=== PATIENT | male | born 1935 | race Two or more races ===

== ENCOUNTER 2020-05-24 14:28 | Inpatient (IN) | payer OTHER ==
[~2020-05-24] VITALS: Ht 218.4 cm; Wt 140.7 kg
[2020-05-24] MEDS ORDERED: SODIUM CHLORIDE 0.9% 1,000 ML IV ONE ×2 (16:15→20:45)
[2020-05-24 17:03] LABS: BASOPHILS % 0.8 % (0.0-2.0); EOSINOPHILS % 5.3 % (0.0-5.0); LYMPHOCYTES % 21.7 % (20.0-50.0); MEAN CORPUSCULAR HEMOGLOBIN 26.5 pg (28.0-32.0); MEAN PLATELET VOLUME 11.2 fl (7.4-10.4); MONOCYTES % 7.7 % (2.0-8.0); NEUTROPHILS % 64.5 % (40.0-76.0); PLATELET 78 x1000/uL (130-400); RED BLOOD CELL COUNT 3.76 mill/uL (4.7-6.1)
[2020-05-24 17:08] LABS: CHLORIDE 109 mEq/L (98-107)
[2020-05-24 17:17] LABS: BETA HYDROXYBUTYRATE 1.1 mMol/L (0.0-0.3)
[2020-05-24 17:55] LABS: BG BASE EXCESS -6.9 mmol/L (-2.0-2.0); BG CARBOXYHEMOGLOBIN 0.3 % (0.5-1.5); BG DEOXYHEMOGLOBIN 5.2 % (0.0-5.0); BG FRACTION INSPIRED OXYGEN 21; BG HCO3 ACT 19.2 mmol/L (22.0-26.0); BG METHEMOGLOBIN 0.2 % (0.0-1.5); BG OXYGEN SATURATION 94.8 % (92.0-98.5); BG OXYHEMOGLOBIN 94.3 % (94.0-97.0); BG PCO2 40.9 mmHg (35.0-45.0); BG PO2 75.3 mmHg (75.0-100.0); BG SAMPLE SITE LEFT BRACHIAL; BG TOTAL HEMOGLOBIN 11.2 g/dL (12.0-18.0); BG VENT MODE ROOM AIR
[2020-05-24] MEDS ORDERED: INSULIN REGULAR (HUMULIN R) UD 100 UNITS/ML SYR SUBCUT ONE (20:45)
[2020-05-24] MEDS ORDERED: MORPHINE SULFATE 2 MG/ML CPJ (NOT FOR IM USE) IV ONE (21:00)
[2020-05-24] MEDS ORDERED: INSULIN REGULAR (HUMULIN R) 300UNITS/3ML VIAL SUBCUT NR (22:45)
[2020-05-24 22:55] LABS: CLARITY URINE CLEAR (CLEAR); COLOR URINE YELLOW (YELLOW); KETONES URINE NEGATIVE (NEGATIVE); LEUKOCYTE ESTERASE URINE NEGATIVE (NEGATIVE); NITRITE URINE NEGATIVE (NEGATIVE); OCCULT BLOOD URINE 1+ (NEGATIVE); PROTEIN URINE 1+ (NEGATIVE); SPECIFIC GRAVITY URINE 1.026 (1.005-1.030); UROBILINOGEN URINE 0.2 E.U./dL (0.2-1.0)
[2020-05-25] MEDS ORDERED: INSULIN REGULAR (HUMULIN R) UD 100 UNITS/ML SYR SUBCUT ONE (00:30)
[2020-05-25] MEDS ORDERED: INSULIN REGULAR (HUMULIN R) 300UNITS/3ML VIAL SUBCUT SCH (01:00)
[2020-05-25] MEDS ORDERED: GUAIFENESIN 200MG/10ML SUGAR FREE UDC PO PRN (03:45)
[2020-05-25] MEDS ORDERED: DEXTROSE 50% WATER 50ML SYRINGE IV PRN (03:45)
[2020-05-25] MEDS ORDERED: ACETAMINOPHEN 325MG TABLET PO PRN (03:45)
[2020-05-25] MEDS ORDERED: HYDROCODONE/APAP 7.5/325MG 1 TAB TABLET PO PRN (04:00)
[2020-05-25] MEDS: SODIUM CHLORIDE 0.9% 1,000 ML IV SCH ×2 (04:13→13:28)
[2020-05-25] MEDS: INSULIN LISPRO 100 UNITS/ML SUBCUT SCH ×4 (08:53→21:04)
[2020-05-25] MEDS: BLOOD SUGAR DIAGNOSTIC STRIP TEST SCH ×4 (08:53→21:04)
[2020-05-25] MEDS: FAMOTIDINE 20MG/2ML VIAL IV SCH (08:53)
[2020-05-25] MEDS: CLONIDINE 0.1MG TABLET PO PRN (08:54)
[2020-05-25 09:50] VITALS: BP 179/77
[2020-05-25] MEDS ORDERED: INSULIN GLARGINE UD 100 UNITS/ML SYR SUBCUT SCH ×2 (10:00→15:30)
[2020-05-25] MEDS ORDERED: NITR0.4T49 SL (12:29)
[2020-05-25] MEDS ORDERED: METO-539 PO (12:29)
[2020-05-25] MEDS ORDERED: LOSA25TA26 PO (12:29)
[2020-05-25] MEDS ORDERED: WARF-53 PO (12:29)
[2020-05-25] MEDS ORDERED: FURO20TA4 PO (12:29)
[2020-05-25] MEDS ORDERED: POTA10TA2 PO (12:29)
[2020-05-25] MEDS ORDERED: ISOS1TAB MT (12:29)
[2020-05-25] MEDS: AMLODIPINE 5MG TABLET PO SCH ×2 (13:27→20:58)
[2020-05-25 15:57] LABS: CREATINE KINASE 954 IU/L (39-308)
[2020-05-25 17:52] LABS: BASOPHILS % 0.5 % (0.0-2.0); EOSINOPHILS % 6.6 % (0.0-5.0); HEMATOCRIT. 31.9 % (42.0-52.0); HEMOGLOBIN. 10.1 g/dL (14.0-18.0); LYMPHOCYTES % 17.5 % (20.0-50.0); MEAN CORPUSCULAR HEMOGLOBIN 26.7 pg (28.0-32.0); MEAN CORPUSCULAR VOLUME 84.2 fL (80.0-94.0); MEAN PLATELET VOLUME 10.6 fl (7.4-10.4); MONOCYTES % 8.4 % (2.0-8.0); PLATELET 72 x1000/uL (130-400); RED BLOOD CELL COUNT 3.79 mill/uL (4.7-6.1)
[2020-05-25] MEDS ORDERED: *PATIENT'S OWN MEDICATION STORAGE XX SCH (18:00)
[2020-05-25 18:02] LABS: INR 1.2; PROTHROMBIN TIME 12.4 sec (9.6-11.0)
[2020-05-25] MEDS ORDERED: NITROGLYCERIN 0.4MG TABLET SL SL PRN (20:30)
[2020-05-25 20:35] VITALS: BP 147/75
[2020-05-25] MEDS: METOPROLOL TARTRATE 50MG TABLET PO SCH (20:58)
[2020-05-25] MEDS ORDERED: WARFARIN SODIUM 5MG TABLET PO NR (22:15)
[2020-05-26 00:17] VITALS: BP 186/86
[2020-05-26 04:00] VITALS: BP 164/80
[2020-05-26] MEDS: SODIUM CHLORIDE 0.9% 1,000 ML IV SCH ×2 (05:34→05:40)
[2020-05-26 07:08] LABS: BASOPHILS % 0.5 % (0.0-2.0); EOSINOPHILS % 6.9 % (0.0-5.0); HEMATOCRIT. 33.2 % (42.0-52.0); HEMOGLOBIN. 10.5 g/dL (14.0-18.0); LYMPHOCYTES % 19.7 % (20.0-50.0); MEAN CORPUSCULAR HEMOGLOBIN 26.5 pg (28.0-32.0); MEAN CORPUSCULAR VOLUME 83.5 fL (80.0-94.0); MEAN PLATELET VOLUME 11.4 fl (7.4-10.4); MONOCYTES % 7.1 % (2.0-8.0); NEUTROPHILS % 65.8 % (40.0-76.0); PLATELET 72 x1000/uL (130-400); RED BLOOD CELL COUNT 3.98 mill/uL (4.7-6.1); RED CELL DISTRIBUTION WIDTH 15.3 % (11.6-14.6)
[2020-05-26 07:09] LABS: INR 1.2; PROTHROMBIN TIME 12.3 sec (9.6-11.0)
[2020-05-26 07:35] LABS: CHLORIDE 118 mEq/L (98-107)
[2020-05-26] MEDS: BLOOD SUGAR DIAGNOSTIC STRIP TEST SCH ×4 (07:41→21:00)
[2020-05-26 08:00] VITALS: BP_SYST 121; BP_SYST 125; BP_DIAS 63; BP_DIAS 64
[2020-05-26] MEDS: FAMOTIDINE 20MG/2ML VIAL IV SCH (08:14)
[2020-05-26] MEDS: ISOSORBIDE DINITRATE 30MG TABLET PO SCH ×3 (08:14→16:48)
[2020-05-26] MEDS: AMLODIPINE 5MG TABLET PO SCH ×2 (08:15→23:10)
[2020-05-26] MEDS: METOPROLOL TARTRATE 50MG TABLET PO SCH ×2 (08:15→23:11)
[2020-05-26] MEDS: INSULIN LISPRO 100 UNITS/ML SUBCUT SCH ×4 (08:17→23:13)
[2020-05-26] MEDS ORDERED: FUROSEMIDE 20MG TABLET PO SCH (09:00)
[2020-05-26] MEDS ORDERED: LOSARTAN POTASSIUM 25 MG TABLET PO SCH (09:00)
[2020-05-26] MEDS ORDERED: POTASSIUM CHLORIDE 10MEQ TABLET SR PO SCH (09:00)
[2020-05-26] MEDS: INSULIN GLARGINE UD 100 UNITS/ML SYR SUBCUT SCH (10:27)
[2020-05-26 12:00] VITALS: BP 132/82
[2020-05-26] MEDS: SODIUM CHLORIDE 0.45% 1,000 ML IV SCH ×2 (12:30→12:53)
[2020-05-26 16:00] VITALS: BP 125/63
[2020-05-26] MEDS ORDERED: WARFARIN SODIUM 5MG TABLET PO NR (18:00)
[2020-05-26 20:00] VITALS: BP 128/74
[2020-05-26] MEDS ORDERED: ENOXAPARIN 120MG/0.8ML SYR SUBCUT SCH (20:00)
[2020-05-27] VITALS: BP 165/81
[2020-05-27 04:00] VITALS: BP 123/72
[2020-05-27] MEDS: SODIUM CHLORIDE 0.45% 1,000 ML IV SCH (05:10)
[2020-05-27 07:11] LABS: HEMATOCRIT. 29.5 % (42.0-52.0); HEMOGLOBIN. 9.5 g/dL (14.0-18.0); MEAN CORPUSCULAR HEMOGLOBIN 26.7 pg (28.0-32.0); MEAN PLATELET VOLUME 11.2 fl (7.4-10.4); PLATELET 68 x1000/uL (130-400); RED BLOOD CELL COUNT 3.56 mill/uL (4.7-6.1); RED CELL DISTRIBUTION WIDTH 15.2 % (11.6-14.6)
[2020-05-27 07:14] LABS: INR 1.3; PROTHROMBIN TIME 13.2 sec (9.6-11.0)
[2020-05-27] MEDS: INSULIN LISPRO 100 UNITS/ML SUBCUT SCH ×4 (07:47→22:00)
[2020-05-27] MEDS: BLOOD SUGAR DIAGNOSTIC STRIP TEST SCH ×4 (07:47→21:41)
[2020-05-27 08:00] VITALS: BP 114/73
[2020-05-27 08:08] LABS: ANTI-NUCLEAR ANTIBODIES DIRECT Negative (Negative)
[2020-05-27] MEDS: FAMOTIDINE 20MG/2ML VIAL IV SCH (08:44)
[2020-05-27] MEDS: AMLODIPINE 5MG TABLET PO SCH ×2 (08:44→21:46)
[2020-05-27] MEDS: ISOSORBIDE DINITRATE 30MG TABLET PO SCH ×3 (08:44→16:38)
[2020-05-27] MEDS: METOPROLOL TARTRATE 50MG TABLET PO SCH ×2 (08:44→21:46)
[2020-05-27] MEDS: INSULIN GLARGINE UD 100 UNITS/ML SYR SUBCUT SCH (11:07)
[2020-05-27 12:00] VITALS: BP 144/67
[2020-05-27 15:10] LABS: PLATELET ESTIMATE DECREASED
[2020-05-27 16:00] VITALS: BP 133/72
[2020-05-27] MEDS ORDERED: WARFARIN SODIUM 5MG TABLET PO NR ×2 (18:00→20:00)
[2020-05-27 20:00] VITALS: BP 165/77
[2020-05-27] MEDS ORDERED: ENOXAPARIN 60MG/0.6ML SYR SUBCUT SCH (20:00)
[2020-05-28] VITALS: BP 119/90
[2020-05-28 04:00] VITALS: BP 151/65
[2020-05-28] MEDS: BLOOD SUGAR DIAGNOSTIC STRIP TEST SCH ×4 (07:24→21:44)
[2020-05-28 08:00] VITALS: BP 121/89
[2020-05-28] MEDS: INSULIN LISPRO 100 UNITS/ML SUBCUT SCH ×4 (09:51→21:57)
[2020-05-28] MEDS: ISOSORBIDE DINITRATE 30MG TABLET PO SCH ×3 (09:52→17:39)
[2020-05-28] MEDS: METOPROLOL TARTRATE 50MG TABLET PO SCH ×2 (09:54→21:50)
[2020-05-28] MEDS: ONDANSETRON HCL 4MG/2ML INJ IV PRN ×2 (09:58→10:03)
[2020-05-28] MEDS: FAMOTIDINE 20MG/2ML VIAL IV SCH (10:08)
[2020-05-28 10:22] LABS: BASOPHILS % 0.8 % (0.0-2.0); EOSINOPHILS % 6.4 % (0.0-5.0); LYMPHOCYTES % 23.7 % (20.0-50.0); MEAN CORPUSCULAR HEMOGLOBIN 26.7 pg (28.0-32.0); MEAN CORPUSCULAR VOLUME 82.7 fL (80.0-94.0); MEAN PLATELET VOLUME 12.1 fl (7.4-10.4); MONOCYTES % 8.4 % (2.0-8.0); NEUTROPHILS % 60.7 % (40.0-76.0); PLATELET 79 x1000/uL (130-400); RED BLOOD CELL COUNT 3.74 mill/uL (4.7-6.1); RED CELL DISTRIBUTION WIDTH 14.9 % (11.6-14.6)
[2020-05-28] MEDS: INSULIN GLARGINE UD 100 UNITS/ML SYR SUBCUT SCH (10:23)
[2020-05-28 10:38] LABS: INR 1.1
[2020-05-28 12:00] VITALS: BP 158/85
[2020-05-28] MEDS: AMLODIPINE 5MG TABLET PO SCH ×2 (12:03→21:50)
[2020-05-28 16:00] VITALS: BP 146/78
[2020-05-28 20:00] VITALS: BP 175/89
[2020-05-29] VITALS: BP 142/61
[2020-05-29 04:00] VITALS: BP 127/85
[2020-05-29] MEDS: SODIUM CHLORIDE 0.45% 1,000 ML IV SCH (04:31)
[2020-05-29] MEDS: INSULIN LISPRO 100 UNITS/ML SUBCUT SCH ×4 (07:50→20:53)
[2020-05-29 08:00] VITALS: BP 197/101
[2020-05-29] MEDS: BLOOD SUGAR DIAGNOSTIC STRIP TEST SCH ×4 (08:05→20:52)
[2020-05-29] MEDS: ISOSORBIDE DINITRATE 30MG TABLET PO SCH ×3 (08:41→18:18)
[2020-05-29] MEDS: METOPROLOL TARTRATE 50MG TABLET PO SCH ×2 (08:41→20:52)
[2020-05-29] MEDS: FAMOTIDINE 20MG/2ML VIAL IV SCH (08:41)
[2020-05-29] MEDS: CLONIDINE 0.1MG TABLET PO PRN (08:42)
[2020-05-29] MEDS: AMLODIPINE 5MG TABLET PO SCH ×2 (08:42→20:52)
[2020-05-29] MEDS: INSULIN GLARGINE UD 100 UNITS/ML SYR SUBCUT SCH (10:00)
[2020-05-29 10:28] LABS: BASOPHILS % 0.6 % (0.0-2.0); EOSINOPHILS % 7.5 % (0.0-5.0); HEMATOCRIT. 32.9 % (42.0-52.0); HEMOGLOBIN. 10.4 g/dL (14.0-18.0); LYMPHOCYTES % 28.5 % (20.0-50.0); MEAN CORPUSCULAR HEMOGLOBIN 26.4 pg (28.0-32.0); MEAN CORPUSCULAR VOLUME 83.3 fL (80.0-94.0); MEAN PLATELET VOLUME 11.4 fl (7.4-10.4); MONOCYTES % 9.8 % (2.0-8.0); NEUTROPHILS % 53.6 % (40.0-76.0); PLATELET 80 x1000/uL (130-400); RED BLOOD CELL COUNT 3.95 mill/uL (4.7-6.1); RED CELL DISTRIBUTION WIDTH 15.3 % (11.6-14.6)
[2020-05-29 12:00] VITALS: BP 129/66
[2020-05-29 16:00] VITALS: BP 132/71
[2020-05-29 20:00] VITALS: BP 112/56
[2020-05-30] VITALS: BP 143/85
[2020-05-30 04:30] VITALS: BP 166/75
[2020-05-30] MEDS: CLONIDINE 0.1MG TABLET PO PRN (06:25)
[2020-05-30] MEDS: BLOOD SUGAR DIAGNOSTIC STRIP TEST SCH ×4 (06:47→21:00)
[2020-05-30] MEDS: ACETAMINOPHEN 325MG TABLET PO PRN (07:01)
[2020-05-30] MEDS: INSULIN LISPRO 100 UNITS/ML SUBCUT SCH ×3 (07:50→20:59)
[2020-05-30 08:15] VITALS: BP 149/76
[2020-05-30] MEDS: ISOSORBIDE DINITRATE 30MG TABLET PO SCH ×3 (08:49→17:00)
[2020-05-30] MEDS: FAMOTIDINE 20MG/2ML VIAL IV SCH (08:50)
[2020-05-30] MEDS: AMLODIPINE 5MG TABLET PO SCH ×2 (08:50→20:56)
[2020-05-30] MEDS: METOPROLOL TARTRATE 50MG TABLET PO SCH ×2 (08:50→20:56)
[2020-05-30] MEDS: INSULIN GLARGINE UD 100 UNITS/ML SYR SUBCUT SCH (10:10)
[2020-05-30 12:24] VITALS: BP 121/67
[2020-05-30 13:08] LABS: BASOPHILS % 0.8 % (0.0-2.0); EOSINOPHILS % 7.4 % (0.0-5.0); HEMATOCRIT. 27.2 % (42.0-52.0); HEMOGLOBIN. 8.8 g/dL (14.0-18.0); LYMPHOCYTES % 26.1 % (20.0-50.0); MEAN CORPUSCULAR HEMOGLOBIN 26.8 pg (28.0-32.0); MEAN CORPUSCULAR VOLUME 82.9 fL (80.0-94.0); MEAN PLATELET VOLUME 11.3 fl (7.4-10.4); MONOCYTES % 11.7 % (2.0-8.0); PLATELET 67 x1000/uL (130-400); RED BLOOD CELL COUNT 3.28 mill/uL (4.7-6.1); RED CELL DISTRIBUTION WIDTH 15.1 % (11.6-14.6)
[2020-05-30 13:13] LABS: CHLORIDE 112 mEq/L (98-107)
[2020-05-30 16:04] VITALS: BP 150/76
[2020-05-30 20:00] VITALS: BP 140/67
[2020-05-31 00:07] VITALS: BP 104/53
[2020-05-31 04:00] VITALS: BP 144/72
[2020-05-31] MEDS: BLOOD SUGAR DIAGNOSTIC STRIP TEST SCH ×4 (07:35→21:26)
[2020-05-31] MEDS: INSULIN LISPRO 100 UNITS/ML SUBCUT SCH ×4 (07:35→21:36)
[2020-05-31 08:00] VITALS: BP 180/73
[2020-05-31] MEDS: ISOSORBIDE DINITRATE 30MG TABLET PO SCH ×3 (08:26→17:07)
[2020-05-31] MEDS: AMLODIPINE 5MG TABLET PO SCH ×2 (08:26→21:00)
[2020-05-31] MEDS: METOPROLOL TARTRATE 50MG TABLET PO SCH ×2 (08:27→21:00)
[2020-05-31] MEDS: FAMOTIDINE 20MG/2ML VIAL IV SCH (08:27)
[2020-05-31] MEDS: INSULIN GLARGINE UD 100 UNITS/ML SYR SUBCUT SCH (10:26)
[2020-05-31 12:00] VITALS: BP 131/72
[2020-05-31 16:00] VITALS: BP 155/78
[2020-05-31 20:00] VITALS: BP 113/42
[2020-06-01] VITALS: BP 145/50
[2020-06-01] MEDS: AMLODIPINE 5MG TABLET PO SCH ×3 (00:52→21:11)
[2020-06-01] MEDS: METOPROLOL TARTRATE 50MG TABLET PO SCH ×3 (00:53→21:11)
[2020-06-01 04:00] VITALS: BP 142/62
[2020-06-01] MEDS: BLOOD SUGAR DIAGNOSTIC STRIP TEST SCH ×4 (06:51→21:00)
[2020-06-01] MEDS: INSULIN LISPRO 100 UNITS/ML SUBCUT SCH ×4 (06:52→21:00)
[2020-06-01 07:28] LABS: BASOPHILS % 0.5 % (0.0-2.0); EOSINOPHILS % 6.9 % (0.0-5.0); HEMATOCRIT. 29.9 % (42.0-52.0); HEMOGLOBIN. 9.9 g/dL (14.0-18.0); LYMPHOCYTES % 26.9 % (20.0-50.0); MEAN CORPUSCULAR HEMOGLOBIN 27.3 pg (28.0-32.0); MEAN CORPUSCULAR VOLUME 82.6 fL (80.0-94.0); MEAN PLATELET VOLUME 11.6 fl (7.4-10.4); MONOCYTES % 11.7 % (2.0-8.0); PLATELET 95 x1000/uL (130-400); RED BLOOD CELL COUNT 3.61 mill/uL (4.7-6.1); RED CELL DISTRIBUTION WIDTH 14.7 % (11.6-14.6)
[2020-06-01 08:00] VITALS: BP 143/76
[2020-06-01] MEDS: ACETAMINOPHEN 325MG TABLET PO PRN (09:18)
[2020-06-01] MEDS: FAMOTIDINE 20MG/2ML VIAL IV SCH (09:19)
[2020-06-01] MEDS: INSULIN GLARGINE UD 100 UNITS/ML SYR SUBCUT SCH (09:20)
[2020-06-01] MEDS: ISOSORBIDE DINITRATE 30MG TABLET PO SCH ×3 (11:55→17:17)
[2020-06-01 12:00] VITALS: BP 142/65
[2020-06-01 16:00] VITALS: BP 119/54
[2020-06-01] MEDS ORDERED: IPRATROPIUM/ALBUTEROL 0.5-3(2.5)MG/3ML NEB HHN PRN (18:00)
[2020-06-01 20:00] VITALS: BP 127/57
[2020-06-01] MEDS: DIPHENHYDRAMINE 50MG/ML VIAL IV PRN (21:11)
[2020-06-02] VITALS: BP 158/68
[2020-06-02 04:00] VITALS: BP 159/80
[2020-06-02] MEDS: INSULIN LISPRO 100 UNITS/ML SUBCUT SCH ×4 (06:01→21:17)
[2020-06-02] MEDS: BLOOD SUGAR DIAGNOSTIC STRIP TEST SCH ×4 (06:01→20:58)
[2020-06-02 08:00] VITALS: BP 128/71
[2020-06-02] MEDS: ASPIRIN 81MG TABLET PO SCH (09:18)
[2020-06-02] MEDS: FAMOTIDINE 20MG/2ML VIAL IV SCH (09:18)
[2020-06-02] MEDS: AMLODIPINE 5MG TABLET PO SCH ×2 (09:18→20:17)
[2020-06-02] MEDS: ISOSORBIDE DINITRATE 30MG TABLET PO SCH ×3 (09:18→16:27)
[2020-06-02] MEDS: METOPROLOL TARTRATE 50MG TABLET PO SCH ×2 (09:18→20:17)
[2020-06-02] MEDS: INSULIN GLARGINE UD 100 UNITS/ML SYR SUBCUT SCH (11:17)
[2020-06-02 12:00] VITALS: BP 129/76
[2020-06-02] MEDS: ACETAMINOPHEN 325MG TABLET PO PRN ×2 (12:53→20:18)
[2020-06-02 16:00] VITALS: BP 102/35
[2020-06-02 20:00] VITALS: BP 120/51
[2020-06-02] MEDS: LORAZEPAM 2MG/ML CPJ IV PRN (20:16)
[2020-06-02] MEDS: KETOROLAC 30MG/ML VIAL IV PRN (23:24)
[2020-06-02] MEDS: DIPHENHYDRAMINE 50MG/ML VIAL IV PRN (23:52)
[2020-06-03] VITALS: BP 139/65
[2020-06-03] MEDS: LORAZEPAM 2MG/ML CPJ IV PRN (02:41)
[2020-06-03 04:00] VITALS: BP 157/77
[2020-06-03] MEDS: INSULIN LISPRO 100 UNITS/ML SUBCUT SCH ×4 (06:21→20:38)
[2020-06-03] MEDS: BLOOD SUGAR DIAGNOSTIC STRIP TEST SCH ×4 (06:21→20:38)
[2020-06-03 08:00] VITALS: BP 146/75
[2020-06-03] MEDS: FAMOTIDINE 20MG/2ML VIAL IV SCH (09:31)
[2020-06-03] MEDS: ASPIRIN 81MG TABLET PO SCH (09:31)
[2020-06-03] MEDS: METOPROLOL TARTRATE 50MG TABLET PO SCH ×2 (09:32→21:32)
[2020-06-03] MEDS: AMLODIPINE 5MG TABLET PO SCH ×2 (09:32→21:33)
[2020-06-03] MEDS: ISOSORBIDE DINITRATE 30MG TABLET PO SCH ×3 (09:32→18:05)
[2020-06-03] MEDS ORDERED: INSULIN GLARGINE UD 100 UNITS/ML SYR SUBCUT SCH (10:00)
[2020-06-03 12:00] VITALS: BP 136/87
[2020-06-03 16:00] VITALS: BP 165/69
[2020-06-03 21:45] VITALS: BP 143/82
[2020-06-04] VITALS: BP 145/81
[2020-06-04 04:00] VITALS: BP 162/90
[2020-06-04] MEDS: INSULIN LISPRO 100 UNITS/ML SUBCUT SCH ×4 (06:58→21:00)
[2020-06-04] MEDS: BLOOD SUGAR DIAGNOSTIC STRIP TEST SCH ×4 (06:58→21:00)
[2020-06-04 08:00] VITALS: BP 123/63
[2020-06-04] MEDS: FAMOTIDINE 20MG/2ML VIAL IV SCH (08:55)
[2020-06-04] MEDS: ASPIRIN 81MG TABLET PO SCH (08:55)
[2020-06-04] MEDS: ISOSORBIDE DINITRATE 30MG TABLET PO SCH ×3 (08:55→16:41)
[2020-06-04] MEDS: METOPROLOL TARTRATE 50MG TABLET PO SCH ×2 (08:56→22:12)
[2020-06-04] MEDS: AMLODIPINE 5MG TABLET PO SCH ×2 (08:56→22:12)
[2020-06-04] MEDS: KETOROLAC 30MG/ML VIAL IV PRN (09:42)
[2020-06-04 11:04] LABS: BASOPHILS % 0.8 % (0.0-2.0); EOSINOPHILS % 6.6 % (0.0-5.0); HEMATOCRIT. 28.6 % (42.0-52.0); MEAN CORPUSCULAR HEMOGLOBIN 26.3 pg (28.0-32.0); MEAN CORPUSCULAR VOLUME 83.4 fL (80.0-94.0); MEAN PLATELET VOLUME 10.2 fl (7.4-10.4); NEUTROPHILS % 64.6 % (40.0-76.0); PLATELET 117 x1000/uL (130-400); RED BLOOD CELL COUNT 3.43 mill/uL (4.7-6.1); RED CELL DISTRIBUTION WIDTH 15.9 % (11.6-14.6)
[2020-06-04 12:00] VITALS: BP 119/60
[2020-06-04] MEDS: ACETAMINOPHEN 325MG TABLET PO PRN (15:22)
[2020-06-04 16:00] VITALS: BP 122/62
[2020-06-04 20:00] VITALS: BP 113/50
[2020-06-05] VITALS: BP 133/80
[2020-06-05] MEDS: INSULIN LISPRO 100 UNITS/ML SUBCUT SCH ×4 (07:05→21:12)
[2020-06-05] MEDS: BLOOD SUGAR DIAGNOSTIC STRIP TEST SCH ×4 (07:05→20:59)
[2020-06-05 07:24] VITALS: BP 140/60
[2020-06-05 07:32] LABS: BASOPHILS % 0.3 % (0.0-2.0); EOSINOPHILS % 6.3 % (0.0-5.0); HEMATOCRIT. 28.8 % (42.0-52.0); HEMOGLOBIN. 9.1 g/dL (14.0-18.0); LYMPHOCYTES % 28.8 % (20.0-50.0); MEAN CORPUSCULAR HEMOGLOBIN 26.5 pg (28.0-32.0); MEAN CORPUSCULAR VOLUME 83.6 fL (80.0-94.0); MEAN PLATELET VOLUME 10.9 fl (7.4-10.4); MONOCYTES % 11.3 % (2.0-8.0); NEUTROPHILS % 53.3 % (40.0-76.0); PLATELET 104 x1000/uL (130-400); RED BLOOD CELL COUNT 3.45 mill/uL (4.7-6.1); RED CELL DISTRIBUTION WIDTH 15.4 % (11.6-14.6)
[2020-06-05] MEDS: SODIUM CHLORIDE 0.45% 1,000 ML IV SCH (08:30)
[2020-06-05] MEDS: ISOSORBIDE DINITRATE 30MG TABLET PO SCH ×3 (10:07→19:05)
[2020-06-05] MEDS: AMLODIPINE 5MG TABLET PO SCH ×2 (10:07→20:54)
[2020-06-05] MEDS: ASPIRIN 81MG TABLET PO SCH (10:07)
[2020-06-05] MEDS: METOPROLOL TARTRATE 50MG TABLET PO SCH ×3 (10:08→21:58)
[2020-06-05] MEDS: FAMOTIDINE 20MG/2ML VIAL IV SCH (10:08)
[2020-06-05 11:48] LABS: CREATINE KINASE 629 IU/L (39-308)
[2020-06-05 12:00] VITALS: BP 138/67
[2020-06-05 20:00] VITALS: BP 139/58
[2020-06-05] MEDS: ACETAMINOPHEN 325MG TABLET PO PRN (21:58)
[2020-06-06] VITALS (7 sets, daily range): BP systolic 100–148; BP diastolic 54–70
[2020-06-06] MEDS: SODIUM CHLORIDE 0.45% 1,000 ML IV SCH ×2 (01:10→02:05)
[2020-06-06] MEDS: BLOOD SUGAR DIAGNOSTIC STRIP TEST SCH ×4 (06:20→21:00)
[2020-06-06] MEDS: AMLODIPINE 5MG TABLET PO SCH ×2 (08:59→21:00)
[2020-06-06] MEDS: FAMOTIDINE 20MG TABLET PO SCH (08:59)
[2020-06-06] MEDS: ASPIRIN 81MG TABLET PO SCH (08:59)
[2020-06-06] MEDS: ISOSORBIDE DINITRATE 30MG TABLET PO SCH ×3 (08:59→17:19)
[2020-06-06] MEDS: METOPROLOL TARTRATE 50MG TABLET PO SCH ×2 (09:00→21:00)
[2020-06-06] MEDS: INSULIN LISPRO 100 UNITS/ML SUBCUT SCH ×4 (09:04→22:16)
[2020-06-06] MEDS: ACETAMINOPHEN 325MG TABLET PO PRN (21:57)
[2020-06-07] VITALS: BP 116/53
[2020-06-07 04:00] VITALS: BP 123/57
[2020-06-07] MEDS: BLOOD SUGAR DIAGNOSTIC STRIP TEST SCH ×4 (06:45→21:46)
[2020-06-07] MEDS: INSULIN LISPRO 100 UNITS/ML SUBCUT SCH ×4 (06:46→22:01)
[2020-06-07 07:59] LABS: BASOPHILS % 0.9 % (0.0-2.0); EOSINOPHILS % 6.9 % (0.0-5.0); HEMATOCRIT. 26.7 % (42.0-52.0); HEMOGLOBIN. 8.5 g/dL (14.0-18.0); LYMPHOCYTES % 29.5 % (20.0-50.0); MEAN CORPUSCULAR HEMOGLOBIN 26.4 pg (28.0-32.0); MEAN CORPUSCULAR VOLUME 83.2 fL (80.0-94.0); MEAN PLATELET VOLUME 10.4 fl (7.4-10.4); MONOCYTES % 8.2 % (2.0-8.0); NEUTROPHILS % 54.5 % (40.0-76.0); PLATELET 109 x1000/uL (130-400); RED BLOOD CELL COUNT 3.21 mill/uL (4.7-6.1); RED CELL DISTRIBUTION WIDTH 15.6 % (11.6-14.6)
[2020-06-07] MEDS: FAMOTIDINE 20MG TABLET PO SCH (08:48)
[2020-06-07] MEDS: ISOSORBIDE DINITRATE 30MG TABLET PO SCH ×3 (08:49→17:17)
[2020-06-07] MEDS: AMLODIPINE 5MG TABLET PO SCH ×2 (08:49→21:42)
[2020-06-07] MEDS: ASPIRIN 81MG TABLET PO SCH (08:50)
[2020-06-07] MEDS: METOPROLOL TARTRATE 50MG TABLET PO SCH ×2 (08:50→21:42)
[2020-06-07 12:00] VITALS: BP 132/58
[2020-06-07 16:00] VITALS: BP 133/51
[2020-06-07 20:00] VITALS: BP 142/50
[2020-06-08] VITALS: BP 91/58
[2020-06-08 04:00] VITALS: BP 124/50
[2020-06-08 05:41] LABS: BASOPHILS % 0.8 % (0.0-2.0); HEMATOCRIT. 27.6 % (42.0-52.0); HEMOGLOBIN. 8.6 g/dL (14.0-18.0); LYMPHOCYTES % 20.1 % (20.0-50.0); MEAN CORPUSCULAR VOLUME 83.6 fL (80.0-94.0); MEAN PLATELET VOLUME 10.4 fl (7.4-10.4); MONOCYTES % 9.4 % (2.0-8.0); NEUTROPHILS % 63.7 % (40.0-76.0); PLATELET 121 x1000/uL (130-400); RED CELL DISTRIBUTION WIDTH 16.1 % (11.6-14.6)
[2020-06-08] MEDS: BLOOD SUGAR DIAGNOSTIC STRIP TEST SCH ×4 (06:54→21:16)
[2020-06-08] MEDS: INSULIN LISPRO 100 UNITS/ML SUBCUT SCH ×4 (07:50→21:00)
[2020-06-08] MEDS: AMLODIPINE 5MG TABLET PO SCH ×2 (09:00→21:00)
[2020-06-08] MEDS: ASPIRIN 81MG TABLET PO SCH (09:47)
[2020-06-08] MEDS: METOPROLOL TARTRATE 50MG TABLET PO SCH ×2 (09:47→21:00)
[2020-06-08] MEDS: ISOSORBIDE DINITRATE 30MG TABLET PO SCH ×3 (09:47→16:58)
[2020-06-08] MEDS: FAMOTIDINE 20MG TABLET PO SCH (12:34)
[2020-06-08] MEDS: ACETAMINOPHEN 325MG TABLET PO PRN (12:34)
[2020-06-08] MEDS ORDERED: SODIUM POLYSTYRENE SULFONATE 15 G/60 ML BOT PO NR (14:30)
[2020-06-08 16:00] VITALS: BP 121/68
[2020-06-08 16:59] VITALS: BP 140/65
[2020-06-08 20:00] VITALS: BP 102/70
[2020-06-09] VITALS: BP 159/70
[2020-06-09 04:00] VITALS: BP 111/44
[2020-06-09 06:48] LABS: BASOPHILS % 0.8 % (0.0-2.0); HEMATOCRIT. 26.9 % (42.0-52.0); HEMOGLOBIN. 8.7 g/dL (14.0-18.0); LYMPHOCYTES % 22.9 % (20.0-50.0); MEAN CORPUSCULAR HEMOGLOBIN 26.8 pg (28.0-32.0); MEAN CORPUSCULAR VOLUME 83.3 fL (80.0-94.0); MEAN PLATELET VOLUME 10.1 fl (7.4-10.4); MONOCYTES % 9.6 % (2.0-8.0); NEUTROPHILS % 60.7 % (40.0-76.0); PLATELET 111 x1000/uL (130-400); RED BLOOD CELL COUNT 3.24 mill/uL (4.7-6.1); RED CELL DISTRIBUTION WIDTH 15.5 % (11.6-14.6)
[2020-06-09] MEDS: BLOOD SUGAR DIAGNOSTIC STRIP TEST SCH ×4 (07:34→21:53)
[2020-06-09] MEDS: INSULIN LISPRO 100 UNITS/ML SUBCUT SCH ×4 (07:50→22:28)
[2020-06-09 08:00] VITALS: BP 161/83
[2020-06-09] MEDS: ISOSORBIDE DINITRATE 30MG TABLET PO SCH ×3 (09:22→17:44)
[2020-06-09] MEDS: AMLODIPINE 5MG TABLET PO SCH ×2 (09:22→21:54)
[2020-06-09] MEDS: FAMOTIDINE 20MG TABLET PO SCH (09:23)
[2020-06-09] MEDS: METOPROLOL TARTRATE 50MG TABLET PO SCH ×2 (09:23→21:54)
[2020-06-09] MEDS: ASPIRIN 81MG TABLET PO SCH (09:23)
[2020-06-09 12:00] VITALS: BP 137/65
[2020-06-09] MEDS: LOSARTAN POTASSIUM 50 MG TABLET PO SCH (13:13)
[2020-06-09 16:00] VITALS: BP 141/51
[2020-06-09 20:00] VITALS: BP 113/55
[2020-06-10] VITALS: BP 139/59
[2020-06-10 04:00] VITALS: BP 143/59
[2020-06-10] MEDS: BLOOD SUGAR DIAGNOSTIC STRIP TEST SCH ×4 (06:24→21:15)
[2020-06-10] MEDS: INSULIN LISPRO 100 UNITS/ML SUBCUT SCH ×4 (07:50→21:00)
[2020-06-10 08:00] VITALS: BP 127/76
[2020-06-10] MEDS: METOPROLOL TARTRATE 50MG TABLET PO SCH ×2 (08:58→21:11)
[2020-06-10] MEDS: AMLODIPINE 5MG TABLET PO SCH ×2 (08:59→21:13)
[2020-06-10] MEDS: ASPIRIN 81MG TABLET PO SCH (08:59)
[2020-06-10] MEDS: ISOSORBIDE DINITRATE 30MG TABLET PO SCH ×3 (09:00→17:57)
[2020-06-10] MEDS: LOSARTAN POTASSIUM 50 MG TABLET PO SCH (09:00)
[2020-06-10] MEDS: FAMOTIDINE 20MG TABLET PO SCH (09:00)
[2020-06-10 12:00] VITALS: BP 150/72
[2020-06-10 16:00] VITALS: BP 117/45
[2020-06-10 20:00] VITALS: BP 139/59
[2020-06-11 04:00] VITALS: BP 132/45
[2020-06-11] MEDS: BLOOD SUGAR DIAGNOSTIC STRIP TEST SCH ×4 (06:52→21:00)
[2020-06-11] MEDS: INSULIN LISPRO 100 UNITS/ML SUBCUT SCH ×4 (07:40→21:10)
[2020-06-11 08:00] VITALS: BP 110/46
[2020-06-11] MEDS: ASPIRIN 81MG TABLET PO SCH (09:47)
[2020-06-11] MEDS: FAMOTIDINE 20MG TABLET PO SCH (09:47)
[2020-06-11] MEDS: METOPROLOL TARTRATE 50MG TABLET PO SCH ×2 (09:48→21:00)
[2020-06-11] MEDS: LOSARTAN POTASSIUM 50 MG TABLET PO SCH (09:48)
[2020-06-11] MEDS: AMLODIPINE 5MG TABLET PO SCH ×2 (09:48→21:00)
[2020-06-11] MEDS: ISOSORBIDE DINITRATE 30MG TABLET PO SCH ×3 (09:48→17:57)
[2020-06-11 12:00] VITALS: BP 108/66
[2020-06-11 13:01] LABS: BASOPHILS % 0.8 % (0.0-2.0); EOSINOPHILS % 5.9 % (0.0-5.0); HEMATOCRIT. 26.5 % (42.0-52.0); HEMOGLOBIN. 8.5 g/dL (14.0-18.0); LYMPHOCYTES % 22.5 % (20.0-50.0); MEAN CORPUSCULAR HEMOGLOBIN 26.4 pg (28.0-32.0); MEAN CORPUSCULAR VOLUME 82.7 fL (80.0-94.0); MEAN PLATELET VOLUME 10.4 fl (7.4-10.4); MONOCYTES % 8.2 % (2.0-8.0); NEUTROPHILS % 62.6 % (40.0-76.0); PLATELET 122 x1000/uL (130-400); RED CELL DISTRIBUTION WIDTH 15.4 % (11.6-14.6)
[2020-06-11 16:00] VITALS: BP 156/66
[2020-06-11 20:00] VITALS: BP 108/52
[2020-06-12] VITALS: BP 135/62
[2020-06-12 04:00] VITALS: BP 132/66
[2020-06-12] MEDS: BLOOD SUGAR DIAGNOSTIC STRIP TEST SCH ×4 (07:20→21:10)
[2020-06-12 07:36] LABS: BASOPHILS % 0.8 % (0.0-2.0); EOSINOPHILS % 6.6 % (0.0-5.0); HEMATOCRIT. 26.8 % (42.0-52.0); HEMOGLOBIN. 8.6 g/dL (14.0-18.0); LYMPHOCYTES % 26.4 % (20.0-50.0); MEAN CORPUSCULAR HEMOGLOBIN 26.9 pg (28.0-32.0); MEAN CORPUSCULAR VOLUME 83.7 fL (80.0-94.0); MEAN PLATELET VOLUME 10.4 fl (7.4-10.4); MONOCYTES % 8.1 % (2.0-8.0); NEUTROPHILS % 58.1 % (40.0-76.0); PLATELET 113 x1000/uL (130-400); RED BLOOD CELL COUNT 3.21 mill/uL (4.7-6.1); RED CELL DISTRIBUTION WIDTH 15.8 % (11.6-14.6)
[2020-06-12] MEDS: INSULIN LISPRO 100 UNITS/ML SUBCUT SCH ×4 (07:50→21:16)
[2020-06-12 08:00] VITALS: BP 150/59
[2020-06-12] MEDS: ASPIRIN 81MG TABLET PO SCH (08:45)
[2020-06-12] MEDS: ISOSORBIDE DINITRATE 30MG TABLET PO SCH ×3 (08:45→16:48)
[2020-06-12] MEDS: FAMOTIDINE 20MG TABLET PO SCH (08:45)
[2020-06-12] MEDS: METOPROLOL TARTRATE 50MG TABLET PO SCH ×2 (08:46→21:07)
[2020-06-12] MEDS: AMLODIPINE 5MG TABLET PO SCH ×2 (08:46→21:07)
[2020-06-12] MEDS: LOSARTAN POTASSIUM 50 MG TABLET PO SCH (08:46)
[2020-06-12 12:00] VITALS: BP 126/57
[2020-06-12 16:00] VITALS: BP 117/48
[2020-06-12 20:00] VITALS: BP 130/44
[2020-06-13] VITALS: BP 141/60
[2020-06-13 04:00] VITALS: BP 152/66
[2020-06-13] MEDS: BLOOD SUGAR DIAGNOSTIC STRIP TEST SCH ×4 (06:45→21:51)
[2020-06-13] MEDS: INSULIN LISPRO 100 UNITS/ML SUBCUT SCH ×4 (06:46→21:53)
[2020-06-13 08:00] VITALS: BP 136/46
[2020-06-13 08:15] LABS: BASOPHILS % 0.8 % (0.0-2.0); EOSINOPHILS % 6.7 % (0.0-5.0); HEMATOCRIT. 26.3 % (42.0-52.0); HEMOGLOBIN. 8.4 g/dL (14.0-18.0); LYMPHOCYTES % 26.5 % (20.0-50.0); MEAN CORPUSCULAR HEMOGLOBIN 26.7 pg (28.0-32.0); MEAN CORPUSCULAR VOLUME 83.4 fL (80.0-94.0); MEAN PLATELET VOLUME 10.1 fl (7.4-10.4); MONOCYTES % 8.8 % (2.0-8.0); NEUTROPHILS % 57.2 % (40.0-76.0); PLATELET 109 x1000/uL (130-400); RED BLOOD CELL COUNT 3.15 mill/uL (4.7-6.1); RED CELL DISTRIBUTION WIDTH 15.7 % (11.6-14.6)
[2020-06-13] MEDS: LOSARTAN POTASSIUM 50 MG TABLET PO SCH (08:23)
[2020-06-13] MEDS: ISOSORBIDE DINITRATE 30MG TABLET PO SCH ×3 (08:23→17:00)
[2020-06-13] MEDS: ASPIRIN 81MG TABLET PO SCH (08:23)
[2020-06-13] MEDS: METOPROLOL TARTRATE 50MG TABLET PO SCH ×2 (08:23→21:49)
[2020-06-13] MEDS: FAMOTIDINE 20MG TABLET PO SCH (08:23)
[2020-06-13] MEDS: AMLODIPINE 5MG TABLET PO SCH ×2 (08:24→21:49)
[2020-06-13 12:00] VITALS: BP 158/68
[2020-06-13] MEDS: CLONIDINE 0.1MG TABLET PO PRN (12:01)
[2020-06-13 16:00] VITALS: BP 136/60
[2020-06-13 20:00] VITALS: BP 150/58
[2020-06-14] VITALS: BP 109/40
[2020-06-14 04:00] VITALS: BP 141/56
[2020-06-14] MEDS: BLOOD SUGAR DIAGNOSTIC STRIP TEST SCH ×4 (06:32→21:44)
[2020-06-14 06:59] LABS: BASOPHILS % 0.8 % (0.0-2.0); EOSINOPHILS % 7.3 % (0.0-5.0); HEMATOCRIT. 25.2 % (42.0-52.0); HEMOGLOBIN. 8.1 g/dL (14.0-18.0); LYMPHOCYTES % 27.3 % (20.0-50.0); MEAN CORPUSCULAR HEMOGLOBIN 26.9 pg (28.0-32.0); MEAN CORPUSCULAR VOLUME 83.4 fL (80.0-94.0); MEAN PLATELET VOLUME 10.3 fl (7.4-10.4); MONOCYTES % 8.1 % (2.0-8.0); NEUTROPHILS % 56.5 % (40.0-76.0); PLATELET 101 x1000/uL (130-400); RED BLOOD CELL COUNT 3.02 mill/uL (4.7-6.1); RED CELL DISTRIBUTION WIDTH 15.7 % (11.6-14.6)
[2020-06-14] MEDS: INSULIN LISPRO 100 UNITS/ML SUBCUT SCH ×4 (07:50→21:00)
[2020-06-14 08:00] VITALS: BP 146/60
[2020-06-14] MEDS: METOPROLOL TARTRATE 50MG TABLET PO SCH ×2 (10:04→21:43)
[2020-06-14] MEDS: FAMOTIDINE 20MG TABLET PO SCH (10:04)
[2020-06-14] MEDS: ASPIRIN 81MG TABLET PO SCH (10:04)
[2020-06-14] MEDS: ISOSORBIDE DINITRATE 30MG TABLET PO SCH ×3 (10:05→17:35)
[2020-06-14] MEDS: LOSARTAN POTASSIUM 50 MG TABLET PO SCH (10:05)
[2020-06-14] MEDS: AMLODIPINE 5MG TABLET PO SCH ×2 (10:05→21:44)
[2020-06-14 12:00] VITALS: BP 124/58
[2020-06-14 16:00] VITALS: BP 157/78
[2020-06-14 20:00] VITALS: BP 115/71
[2020-06-15] VITALS: BP 133/59
[2020-06-15 04:00] VITALS: BP 136/69
[2020-06-15] MEDS: BLOOD SUGAR DIAGNOSTIC STRIP TEST SCH ×4 (06:20→21:02)
[2020-06-15] MEDS: INSULIN LISPRO 100 UNITS/ML SUBCUT SCH ×4 (07:50→21:11)
[2020-06-15 08:00] VITALS: BP 120/52
[2020-06-15] MEDS: FAMOTIDINE 20MG TABLET PO SCH (09:32)
[2020-06-15] MEDS: METOPROLOL TARTRATE 50MG TABLET PO SCH ×2 (09:32→21:00)
[2020-06-15] MEDS: LOSARTAN POTASSIUM 50 MG TABLET PO SCH (09:32)
[2020-06-15] MEDS: AMLODIPINE 5MG TABLET PO SCH ×2 (09:32→21:00)
[2020-06-15] MEDS: ISOSORBIDE DINITRATE 30MG TABLET PO SCH ×3 (09:32→17:00)
[2020-06-15] MEDS: ASPIRIN 81MG TABLET PO SCH (09:32)
[2020-06-15 12:00] VITALS: BP 147/73
[2020-06-15 16:00] VITALS: BP 107/53
[2020-06-15] MEDS: ACETAMINOPHEN 325MG TABLET PO PRN (18:22)
[2020-06-15 20:00] VITALS: BP 101/50
[2020-06-16] VITALS: BP 133/48
[2020-06-16] MEDS ORDERED: DEXTROSE 50% WATER 50ML SYRINGE IV PRN (00:15)
[2020-06-16] MEDS ORDERED: GLUCAGON,HUMAN RECOMBINANT 1MG/VIAL IM NR (00:30)
[2020-06-16 04:00] VITALS: BP 161/66
[2020-06-16] MEDS: CLONIDINE 0.1MG TABLET PO PRN (05:50)
[2020-06-16] MEDS: BLOOD SUGAR DIAGNOSTIC STRIP TEST SCH ×4 (06:25→21:29)
[2020-06-16] MEDS: INSULIN LISPRO 100 UNITS/ML SUBCUT SCH ×4 (07:50→23:15)
[2020-06-16 08:00] VITALS: BP 138/44
[2020-06-16] MEDS: LOSARTAN POTASSIUM 50 MG TABLET PO SCH (09:28)
[2020-06-16] MEDS: ASPIRIN 81MG TABLET PO SCH (09:28)
[2020-06-16] MEDS: AMLODIPINE 5MG TABLET PO SCH ×2 (09:28→21:29)
[2020-06-16] MEDS: ISOSORBIDE DINITRATE 30MG TABLET PO SCH ×3 (09:29→17:49)
[2020-06-16] MEDS: METOPROLOL TARTRATE 50MG TABLET PO SCH ×2 (09:29→21:28)
[2020-06-16] MEDS: FAMOTIDINE 20MG TABLET PO SCH (09:29)
[2020-06-16 11:45] LABS: BASOPHILS % 0.8 % (0.0-2.0); EOSINOPHILS % 7.3 % (0.0-5.0); HEMATOCRIT. 25.6 % (42.0-52.0); HEMOGLOBIN. 8.1 g/dL (14.0-18.0); LYMPHOCYTES % 23.4 % (20.0-50.0); MEAN CORPUSCULAR HEMOGLOBIN 26.4 pg (28.0-32.0); MEAN PLATELET VOLUME 10.5 fl (7.4-10.4); MONOCYTES % 8.3 % (2.0-8.0); NEUTROPHILS % 60.2 % (40.0-76.0); PLATELET 96 x1000/uL (130-400); RED BLOOD CELL COUNT 3.05 mill/uL (4.7-6.1)
[2020-06-16 12:00] VITALS: BP 130/40
[2020-06-16 16:00] VITALS: BP 154/60
[2020-06-16 20:00] VITALS: BP 135/55
[2020-06-17] VITALS: BP_SYST 124; BP_SYST 137; BP_DIAS 68; BP_DIAS 73
[2020-06-17 06:50] LABS: BASOPHILS % 0.6 % (0.0-2.0); EOSINOPHILS % 7.9 % (0.0-5.0); HEMATOCRIT. 25.9 % (42.0-52.0); HEMOGLOBIN. 8.3 g/dL (14.0-18.0); MEAN CORPUSCULAR HEMOGLOBIN 26.8 pg (28.0-32.0); MEAN CORPUSCULAR VOLUME 83.8 fL (80.0-94.0); MEAN PLATELET VOLUME 10.6 fl (7.4-10.4); MONOCYTES % 9.1 % (2.0-8.0); NEUTROPHILS % 56.4 % (40.0-76.0); PLATELET 89 x1000/uL (130-400); RED BLOOD CELL COUNT 3.09 mill/uL (4.7-6.1); RED CELL DISTRIBUTION WIDTH 15.7 % (11.6-14.6)
[2020-06-17] MEDS: BLOOD SUGAR DIAGNOSTIC STRIP TEST SCH ×3 (07:20→17:51)
[2020-06-17] MEDS: INSULIN LISPRO 100 UNITS/ML SUBCUT SCH ×3 (07:50→17:50)
[2020-06-17] MEDS: METOPROLOL TARTRATE 50MG TABLET PO SCH ×2 (09:00→09:22)
[2020-06-17] MEDS: ISOSORBIDE DINITRATE 30MG TABLET PO SCH ×3 (09:00→17:53)
[2020-06-17] MEDS: LOSARTAN POTASSIUM 50 MG TABLET PO SCH ×2 (09:00→09:22)
[2020-06-17] MEDS: FAMOTIDINE 20MG TABLET PO SCH ×2 (09:00→09:22)
[2020-06-17] MEDS: ASPIRIN 81MG TABLET PO SCH ×2 (09:00→09:22)
[2020-06-17] MEDS: AMLODIPINE 5MG TABLET PO SCH ×2 (09:00→09:22)
[2020-06-17] MEDS ORDERED: SODIUM POLYSTYRENE SULFONATE 15 G/60 ML BOT PO NR (13:00)
== END 2020-06-17 20:15 | disposition home or self-care (01) | DRG 64 ==
LOC: ER 14:28 → 6WST 05-25 00:22 → EDBEDREQDT 05-25 00:30 → EDBEDREQTM 05-25 00:30 → EDBEDREQ 05-25 00:30 → EDBEDREQTM 05-25 03:59 → ENRESERV 05-25 08:45 → 5WST 05-31 17:33 → 6EST 06-05 13:53
PROVIDERS: ADMIT Internal Medicine; ATTEND Internal Medicine
DX: I63.9 Cerebral infarction, unspecified (principal); G93.41 Metabolic encephalopathy; I48.20 Chronic atrial fibrillation, unspecified; N17.9 Acute kidney failure, unspecified; I82.411 Acute embolism and thrombosis of right femoral vein; I82.433 Acute embolism and thrombosis of popliteal vein, bilateral; E11.65 Type 2 diabetes mellitus with hyperglycemia; D69.6 Thrombocytopenia, unspecified; I48.0 Paroxysmal atrial fibrillation; I50.9 Heart failure, unspecified; N18.9 Chronic kidney disease, unspecified; E86.0 Dehydration; E66.9 Obesity, unspecified; N27.0 Small kidney, unilateral; Z68.28 Body mass index [BMI] 28.0-28.9, adult; Z86.73 Personal history of transient ischemic attack (TIA), and cerebral infarction without residual deficits; Z79.01 Long term (current) use of anticoagulants; Z79.4 Long term (current) use of insulin; Z79.899 Other long term (current) drug therapy; I25.2 Old myocardial infarction
CPT/HCPCS: 36415; 36600; 70551; 71045; 72192; 76770; 80048; 80053; 81003; 82010; 82375; 82550; 82575; 82805; 82962; 83036; 83735; 84100; 84484; 85025; 86038; 86160; 93005; 93970; 97110; 97116; 97162; 97166; 97530; 97535; 99285; C1893; J1200; J1650; J1815; J1885; J2060; J2270; J2405; J3490; J7030